=== PATIENT | male | born 1995 | race Two or more races ===

== ENCOUNTER 2023-06-24 11:28 | Emergency (ER) | payer OTHER ==
[~2023-06-24] VITALS: Ht 157.5 cm; Wt 68.1 kg
[2023-06-24 12:14] VITALS: BP 138/93; PULSE 90; RESP 16; TEMP 98.3; O2SAT 97
[2023-06-24] MEDS ORDERED: PENICILLIN G PROC & BENZAT 1200000 UNITS/2 ML SYRG IM ONE (12:45)
== END 2023-06-24 13:09 | disposition home or self-care (01) ==
LOC: ER 11:28
DX: A53.9 Syphilis, unspecified (principal)
CPT/HCPCS: 96372; 99283; J0558

== ENCOUNTER 2023-06-30 11:42 | Emergency (ER) | payer OTHER ==
[~2023-06-30] VITALS: Ht 157.5 cm; Wt 68.8 kg
[2023-06-30 12:18] VITALS: BP 134/99; PULSE 82; RESP 18; TEMP 98.9; O2SAT 100
[2023-06-30] MEDS ORDERED: PENICILLIN G PROC & BENZAT 1200000 UNITS/2 ML SYRG IM ONE ×2 (12:30)
== END 2023-06-30 12:49 | disposition home or self-care (01) ==
LOC: ER 11:42
DX: A53.9 Syphilis, unspecified (principal)
CPT/HCPCS: 96372; 99284; J0558

== ENCOUNTER 2023-07-08 13:02 | Emergency (ER) | payer OTHER ==
[~2023-07-08] VITALS: Ht 157.5 cm; Wt 66.0 kg
[2023-07-08 14:44] VITALS: BP 116/89; PULSE 76; RESP 14; TEMP 97.8; O2SAT 97
== END 2023-07-08 15:01 | disposition home or self-care (01) ==
LOC: ER 13:02
DX: Z02.9 Encounter for administrative examinations, unspecified (principal); A53.9 Syphilis, unspecified